=== PATIENT | female | born 1970 | race Caucasian/White ===

== ENCOUNTER 2021-05-09 01:05 | Emergency (ER) | payer OTHER, SELFPAY ==
[2021-05-09] VITALS (12 sets, daily range): BP systolic 126–160; BP diastolic 77–105; PULSE 98–202; RESP 19–28; TEMP 36.6–37.1; O2SAT 92–98; BMI 30.1
--- NOTE | ~2021-05-09 | CT_ITS ---
EXAMINATION: CT HEAD WITHOUT CONTRAST CLINICAL INFORMATION: Unresponsive COMPARISON: None TECHNIQUE: Contiguous axial imaging was performed from the skull base to vertex without intravenous administration of contrast. This CT examination was performed using dose optimization techniques as appropriate, variously including the following: *Automated exposure control *Adjustment of mA and/or kV according to patient size (this includes techniques or standardized protocols for targeted exams where dose is matched to indication/reason for exam; i.e. extremities or head) *Use of iterative reconstruction technique DLP: 576 mGy-cm FINDINGS: There is no evidence of acute intracranial hemorrhage or territorial infarction. No abnormal mass effect or midline shift is seen. Jaramillo to white matter differentiation is well preserved. No extra-axial fluid collections are identified. The ventricles are normal in size. There is no abnormal attenuation within the brain parenchyma. The osseous structures and soft tissues are normal. The mastoid air cells and visualized portions of the paranasal sinuses are well aerated. CT/CT head/brain wo con IMPRESSION: No acute intracranial pathology.
--- NOTE | 2021-05-09 01:15 | ECG_ITS ---
Test Reason : etoh,unresponsive Blood Pressure : / mmHG Vent. Rate : 138 BPM Atrial Rate : 138 BPM P-R Int : 140 ms QRS Dur : 078 ms QT Int : 276 ms P-R-T Axes : 043 007 026 degrees QTc Int : 418 ms Sinus tachycardia Cannot rule out Anterior infarct , age undetermined Abnormal ECG No previous ECGs available Referred By: Gina Meléndez Electronically Signed By:Meño Serrano
--- NOTE | 2021-05-09 01:17 | ED.GENADULT ---
HPI - General Adult General Chief complaint: Fall Stated complaint: ETOH INTOXICATION, RESPONSIVE TO PAIN ONLY PER EMS Time Seen by Provider: 05/09/21 01:13 Source: EMS Mode of arrival: EMS Limitations: altered mental status History of Present Illness HPI narrative: Patient is brought to the emergency room by EMS. Patient was celebrating new years with her family. The family members report that the patient was drinking wine, sitting down, then passed out while sitting. The patient did not fall. According to EMS, all of the family members were very intoxicated and belligerent and could not get an accurate history. Patient only responds to sternal rub. The family did not report any past medical history. Related Data Allergies Allergy/AdvReac Type Severity Reaction Status Date / Time Unable to Assess Allergy Verified 05/09/21 01:14 Review of Systems Review of Systems: Yes Unobtainable due to mental condition (Intoxicated) [facility] Social History Social History Advance Directives: No Patient : No Physical Exam Vital Signs: Vital Signs: Last Vital Signs Temp 97.8 F 05/09/21 05:07 Pulse 117 H 05/09/21 06:02 Resp 20 05/09/21 05:07 BP 136/97 H 05/09/21 06:02 Pulse Ox 98 05/09/21 05:07 BMI result Body Mass Index 30.1 Const: Other: Appearance: Somnolent, arousable to sternal rub, wakes up and asks what? And goes back to sleep Eyes: Pupils equal, round and reactive to light. No pinpoint pupils ENT: Pharynx normal. Neck: Normal inspection. Neck supple. No lymph nodes noted. No crepitus CVS: Tachycardic in the 120s. Pulses normal. Normal S1 and S2 Respiratory: No respiratory distress. Breath sounds normal. No Wheezing. No rales Abdomen: Soft and nontender. No rigidity. No distention. Skin: Skin warm and dry. Normal skin color. Normal skin turgor. Extremities: No lower extremity edema.No Lacerations. No Rash Neuro: Not following commands, too intoxicated Course Course Course Narrative: Patient's head CT is negative, troponin negative, EKG shows no acute abnormalities. Patient's alcohol level is 360. Patient is more awake, answering questions. Patient still remains intoxicated. Plan is to metabolize to freedom. Physician observation started at 03:04 Approximately at 04:30, patient's heart rate 109-175. Seems to be SVT. Patient does not have any chest pain or shortness of breath. Patient has no history of atrial fibrillation. Patient's heart rate went up to 200. 6 mg of adenosine were given. Did not have any effect. Patient was given 12 mg of adenosine, heart rate yoli to 70 for a few seconds, underlying rhythm is sinus rhythm, then heart rate returned to 160. Patient states that she has no chest pain or shortness of breath. Denies nausea. Patient has received 2 L of normal saline. Patient has no fever. Patient was give 5 mg of IV metoprolol, blood pressure is 153/90, heart rate dropped to 110, blood pressure remains in the 130s after the 5 mg. Patient will receive a 2nd dose of 5 mg of IV metoprolol. Patient remains asymptomatic. Patient is now awake, alert, patient states that she would like to have help for detox from alcohol After a 2nd dose of 5 mg IV metoprolol, patient's heart rate is approximately 110, blood pressure 130 systolic. Patient will likely need p.o. beta mauricio prior to discharge and follow up with Cardiology Sign-out given to Dr. Wallace Medical Decision Making Lab Data Result diagrams: 05/09/21 01:42 05/09/21 01:42 Labs: Lab Results 05/09/21 05/09/21 05/09/21 Range/Units 01:21 01:42 01:42 WBC 8.0 (4.8-10.8) X10*3/uL RBC 5.19 (4.20-5.50) X10*6/uL Hgb 15.4 (12.0-16.0) g/dl Hct 47.1 H (37.0-47.0) % MCV 90.8 (80.0-98.0) fL MCH 29.7 (27.0-33.0) pg MCHC 32.7 (31.0-35.0) g/dl RDW 13.2 (11.0-16.0) % Plt Count 154 L (160-400) X10*3/uL MPV 11.9 (9.4-12.3) fL Immature Gran % (Auto) 0.4 (0.0-0.4) % Neut % (Auto) 49.6 (45-73) % Lymph % (Auto) 42.1 H (20-40) % Kingfisher % (Auto) 6.0 (2-11) % Eos % (Auto) 1.4 (0-4) % Baso % (Auto) 0.5 (0-2) % Lymph # (Auto) 3.4 (1.2-4.9) X10*3/uL Kingfisher # (Auto) 0.5 (0.1-1.2) X10*3/uL Eos # (Auto) 0.1 (0.0-0.4) X10*3/uL Baso # (Auto) 0.0 (0.0-0.2) X10*3/uL Abs Immat Gran (auto) 0.03 (0.00-0.03) X10*3/uL Absolute Neuts (auto) 4.0 (2.0-8.3) x10*3/uL Absolute Nucleated RBC 0.000 (0.0-0.012) X10*3/uL Nucleated RBC % (auto) 0.0 (0.0-0.2) /100WBC Sodium 146 H (135-145) mmol/L Potassium 4.3 (3.3-5.1) mmol/L Chloride 114 H (96-108) mmol/L Carbon Dioxide 22 (22-29) mmol/L Anion Gap 14 (12-20) BUN 13 (9-16) mg/dL Creatinine 0.71 (0.5-1.4) mg/dL Estim Creat Clear Calc 81.8 Estimated GFR > 60 POC Glucose 97 (60-115) mg/dL Random Glucose 104 (60-115) mg/dL Calcium 9.0 (8.4-10.2) mg/dL Magnesium 2.6 (1.6-2.6) mg/dL Total Bilirubin 0.3 (0.0-1.0) mg/dL Direct Bilirubin < 0.2 (0.0-0.5) mg/dL AST 15 (5-31) U/L ALT 20 (0-31) U/L Alkaline Phosphatase 72 (39-117) U/L Troponin I High Sens (<3.5-17.0) ng/L Total Protein 7.5 (6.5-8.0) g/dL Albumin 4.6 (3.5-5.0) g/dL Ethyl Alcohol mg/dL 05/09/21 05/09/21 Range/Units 01:42 01:42 WBC (4.8-10.8) X10*3/uL RBC (4.20-5.50) X10*6/uL Hgb (12.0-16.0) g/dl Hct (37.0-47.0) % MCV (80.0-98.0) fL MCH (27.0-33.0) pg MCHC (31.0-35.0) g/dl RDW (11.0-16.0) % Plt Count (160-400) X10*3/uL MPV (9.4-12.3) fL Immature Gran % (Auto) (0.0-0.4) % Neut % (Auto) (45-73) % Lymph % (Auto) (20-40) % Kingfisher % (Auto) (2-11) % Eos % (Auto) (0-4) % Baso % (Auto) (0-2) % Lymph # (Auto) (1.2-4.9) X10*3/uL Kingfisher # (Auto) (0.1-1.2) X10*3/uL Eos # (Auto) (0.0-0.4) X10*3/uL Baso # (Auto) (0.0-0.2) X10*3/uL Abs Immat Gran (auto) (0.00-0.03) X10*3/uL Absolute Neuts (auto) (2.0-8.3) x10*3/uL Absolute Nucleated RBC (0.0-0.012) X10*3/uL Nucleated RBC % (auto) (0.0-0.2) /100WBC Sodium (135-145) mmol/L Potassium (3.3-5.1) mmol/L Chloride (96-108) mmol/L Carbon Dioxide (22-29) mmol/L Anion Gap (12-20) BUN (9-16) mg/dL Creatinine (0.5-1.4) mg/dL Estim Creat Clear Calc Estimated GFR POC Glucose (60-115) mg/dL Random Glucose (60-115) mg/dL Calcium (8.4-10.2) mg/dL Magnesium (1.6-2.6) mg/dL Total Bilirubin (0.0-1.0) mg/dL Direct Bilirubin (0.0-0.5) mg/dL AST (5-31) U/L ALT (0-31) U/L Alkaline Phosphatase (39-117) U/L Troponin I High Sens < 3.5 (<3.5-17.0) ng/L Total Protein (6.5-8.0) g/dL Albumin (3.5-5.0) g/dL Ethyl Alcohol 360 H* mg/dL Imaging Data CT scan - head: Radiologist's impression: FINDINGS: There is no evidence of acute intracranial hemorrhage or territorial infarction. No abnormal mass effect or midline shift is seen. Jaramillo to white matter differentiation is well preserved. No extra-axial fluid collections are identified. The ventricles are normal in size. There is no abnormal attenuation within the brain parenchyma. The osseous structures and soft tissues are normal. The mastoid air cells and visualized portions of the paranasal sinuses are well aerated. ? CT/CT head/brain wo con IMPRESSION: No acute intracranial pathology. Discharge Plan Discharge Clinical Impression: Alcohol intoxication, Tachycardia Patient Disposition: Still a Patient
[2021-05-09 01:31] LABS: Glucose, Whole Blood 97 mg/dL (60-115)
[2021-05-09 01:47] LABS: MANUAL DIFF FLAG NO
[2021-05-09 01:48] LABS: Basophils Percent Auto 0.5 % (0-2); Eosinophils Absolute Auto 0.1 X10*3/uL (0.0-0.4); Eosinophils Percent Auto 1.4 % (0-4); Hematocrit 47.1 % (37.0-47.0); Hemoglobin 15.4 g/dl (12.0-16.0); Imm Gran Abs Auto 0.03 X10*3/uL (0.00-0.03); Imm Gran Pct Auto 0.4 % (0.0-0.4); Lymphocytes Absolute Auto 3.4 X10*3/uL (1.2-4.9); Lymphocytes Percent Auto 42.1 % (20-40); Mean Corpuscular HGB Conc 32.7 g/dl (31.0-35.0); Mean Corpuscular Hemoglobin 29.7 pg (27.0-33.0); Mean Corpuscular Volume 90.8 fL (80.0-98.0); Mean Platelet Volume 11.9 fL (9.4-12.3); Monocytes Absolute Auto 0.5 X10*3/uL (0.1-1.2); Neutrophils Percent Auto 49.6 % (45-73); Platelet Count 154 X10*3/uL (160-400); Red Blood Count 5.19 X10*6/uL (4.20-5.50); Red Cell Distribution Width 13.2 % (11.0-16.0)
[2021-05-09 02:00] LABS: Ethanol 360 mg/dL
[2021-05-09 02:04] LABS: Alanine Aminotransferase 20 U/L (0-31); Albumin Level 4.6 g/dL (3.5-5.0); Alkaline Phosphatase 72 U/L (39-117); Anion Gap 14 (12-20); Aspartate Amino Transferase 15 U/L (5-31); Bilirubin Direct < 0.2 mg/dL (0.0-0.5); Bilirubin Total 0.3 mg/dL (0.0-1.0); Blood Urea Nitrogen 13 mg/dL (9-16); Carbon Dioxide 22 mmol/L (22-29); Chloride 114 mmol/L (96-108); Creatinine Clr Calc Pharmacy 81.8; Estimated Glomerular Filt Rate > 60; Glucose Random 104 mg/dL (60-115); Magnesium 2.6 mg/dL (1.6-2.6); Potassium 4.3 mmol/L (3.3-5.1); Sodium 146 mmol/L (135-145); Total Protein 7.5 g/dL (6.5-8.0)
[2021-05-09 02:08] LABS: Troponin-I High Sensitivity < 3.5 ng/L (<3.5-17.0)
--- NOTE | 2021-05-09 04:23 | PC.NURSE ---
pt was sleeping turned onto her left side and hr elevated to 150. pt hr is slowly coming back down and pt is on the monitor. denies pain. skin pink warm and dry. no resp distress noted.
--- NOTE | 2021-05-09 04:26 | PC.NURSE ---
provider made aware of the hr. at this time ekg and hr has been slowly coming down from 170 to 147.
--- NOTE | 2021-05-09 04:37 | PC.NURSE ---
pt speach is clearer at this time, easy to arrouse when sleeping. pt denies chest pain. hr gets ecited with stimuli and hr increased back to 158
[2021-05-09] MEDS: 0.9 % Sodium Chloride 1,000 ML 999 ML IVCONT ×2 (04:39)
--- NOTE | 2021-05-09 04:57 | PC.NURSE ---
pt given adenosine [address] lester at bedside. hr broke to nsr in th 90's then rebound to over 200. bp 160/82/106 hr 206 pt awake and talking when asked.
--- NOTE | 2021-05-09 05:02 | ECG_ITS ---
Test Reason : ?afib Blood Pressure : / mmHG Vent. Rate : 147 BPM Atrial Rate : 147 BPM P-R Int : 140 ms QRS Dur : 070 ms QT Int : 342 ms P-R-T Axes : 072 013 029 degrees QTc Int : 535 ms Sinus tachycardia Possible Anterior infarct (cited on or before 09-MAY-2021) Abnormal ECG When compared with ECG of 09-MAY-2021 01:22, No significant change was found Referred By: Gina Meléndez Electronically Signed By:Meño Serrano
[2021-05-09] MEDS: Metoprolol Tartrate 5 MG/5 ML VIAL IVPUSH ×2 (05:10→06:02)
--- NOTE | 2021-05-09 06:39 | PC.NURSE ---
pt seeking detox, pt has a plan to stop drinking after the new year. pt also has a new diet she cant remember it at this time that is also starting in the new year. pt denies pain. skin pink warm and dry. hr 115 bp wnl at baseline.
[2021-05-09] MEDS: 0.9 % Sodium Chloride 1,000 ML 999 ML IV (10:00)
--- NOTE | 2021-05-09 11:12 | PC.NURSE ---
pt is a/o x 3 no sob/tejas noted skin pink warm dry speaks in full sentences
--- NOTE | 2021-05-09 11:21 | MHC.CARE ---
CARE TEAM met with pt in ED 8. She denied interest in seeking detox admissions. She discussed she was with family last night celebrating New Year and over drank. She disclosed she often drinks two to three times a week however stated she does not feel her drinking is an issue. She denied any suicidal and homicidal ideation, plan or intent. She was provided with detox resources. Consulted with Dr. Freitas and he was agreeable with discharge.
== END 2021-05-09 11:55 | disposition home or self-care (01) ==
PROVIDERS: Emergency Provider Emergency Medicine; PCP Hospitalist
DX: R00.0 Tachycardia, unspecified (principal); F10.129 Alcohol abuse with intoxication, unspecified; R51.9 Headache, unspecified; Y90.8 Blood alcohol level of 240 mg/100 ml or more; Z79.899 Other long term (current) drug therapy; Z71.41 Alcohol abuse counseling and surveillance of alcoholic
CPT/HCPCS: 36415; 70450; 80048; 80076; 82077; 82947; 83735; 84484; 85025; 93005; 96361; 96374; 96375; 96376; 99285; J0153